=== PATIENT | female | born 1950 | race Caucasian/White ===

== ENCOUNTER 2023-05-24 22:40 | Emergency (ER) | payer BC ==
[~2023-05-24] VITALS: Ht 157.5 cm; Wt 54.4 kg
[2023-05-24 22:46] VITALS: TEMP 98.6
[2023-05-24 23:36] LABS: BASOPHILS # (AUTO) 0.1 K/uL (0.0-0.2); BASOPHILS % (AUTO) 0.9 % (0.0-2.0); EOSINOPHILS # (AUTO) 0.2 K/uL (0.0-0.7); EOSINOPHILS % (AUTO) 2.5 % (0.0-6.0); HEMATOCRIT 38 % (33-45); HEMOGLOBIN 12.9 g/dL (11.5-14.8); LYMPHOCYTES # (AUTO) 2.1 K/uL (0.8-4.8); LYMPHOCYTES % (AUTO) 31.9 % (20.0-44.0); MEAN CORPUSCULAR HEMOGLOBIN 32 PG (26.0-33.0); MEAN CORPUSCULAR HGB CONC 34 g/dl (31.0-36.0); MEAN CORPUSCULAR VOLUME 94 fL (82-100); MONOCYTES # (AUTO) 0.7 K/uL (0.1-1.30); MONOCYTES % (AUTO) 10.6 % (2.0-12.0); NEUTROPHILS # (AUTO) 3.6 K/uL (1.8-8.9); NEUTROPHILS % (AUTO) 54.1 % (43.0-81.0); PLATELET COUNT (AUTO) 209 K/uL (150-450); RED BLOOD CELL COUNT(AUTO) 4.05 MIL/uL (4.0-5.2); RED CELL DISTRIBUTION WIDTH 14.4 % (11.5-15.0); WHITE BLOOD COUNT (AUTO) 6.6 K/uL (4.3-11.0)
[2023-05-24 23:45] LABS: ADD URINE CULTURE YES; APPEARANCE,URINE CLEAR (CLEAR); BACTERIA,URINE Rare /HPF (None Seen); BILIRUBIN,URINE NEGATIVE (NEGATIVE); BLOOD, URINE NEGATIVE Ery/uL (NEGATIVE); COLOR,URINE YELLOW (YELLOW); KETONES,URINE TRACE mg/dL (NEGATIVE); LEUKOCYTE ESTERASE ,URINE 1+ (NEGATIVE); NITRITE, URINE NEGATIVE (NEGATIVE); PROTEIN,URINE NEGATIVE (NEGATIVE); RBC,URINE 0-2 /HPF (0-2); SQUAMOUS EPITHELIAL CELL,UR Rare /HPF (None Seen); UGLUCOSE NEGATIVE (NEGATIVE)
[2023-05-24 23:50] LABS: ALANINE AMINOTRANSFERASE 18 U/L (12-78); ALBUMIN 2.6 g/dL (3.4-5.0); ALKALINE PHOSPHATASE 96 U/L (46-116); ASPARTATE AMINOTRANSFERASE 19 U/L (15-37); BILIRUBIN,DIRECT 0.1 mg/dL (0.0-0.2); BILIRUBIN,TOTAL 0.3 mg/dL (0.2-1.0); CARBON DIOXIDE 25 mmol/L (21-32); CHLORIDE 110 mmol/L (98-107); CREATININE 0.7 mg/dL (0.6-1.3); GLUCOSE 115 mg/dL (74-106); LIPASE 38 U/L (16-77); POTASSIUM 3.8 mmol/L (3.5-5.1); SODIUM SERUM 141 mmol/L (136-145); TOTAL PROTEIN, SERUM 6.9 g/dL (6.4-8.2); UREA NITROGEN, BLOOD 25 mg/dL (7-18)
[2023-05-24 23:52] LABS: INR 1.18 (0.91-1.10); PARTIAL THROMBOPLASTIN TIME 29.1 SEC (24.3-34.3); PROTHROMBIN TIME 12.4 SECS (9.2-11.1)
[2023-05-25 00:38] VITALS: BP 121/77; O2SAT 98
[2023-05-25] MEDS: NITROFURANTOIN/MONOHYDRATE MACROCRYSTALS 100 MG CAPSULE PO ONE (00:58)
[2023-05-25] MEDS ORDERED: NITROFURANTOIN/MONOHYDRATE MACROCRYSTALS 100 MG CAPSULE ONE (00:58)
[2023-05-25] MEDS ORDERED: NITR100C6 PO (02:24)
== END 2023-05-25 03:00 ==
LOC: ER 22:49
DX: K40.90 Unilateral inguinal hernia, without obstruction or gangrene, not specified as recurrent (principal); N39.0 Urinary tract infection, site not specified; F03.90 Unspecified dementia, unspecified severity, without behavioral disturbance, psychotic disturbance, mood disturbance, and anxiety; I10 Essential (primary) hypertension; K21.9 Gastro-esophageal reflux disease without esophagitis; Z79.899 Other long term (current) drug therapy
CPT/HCPCS: 36415; 71045-TC; 80048-TC; 80076-TC; 81001; 83690-TC; 84484-TC; 85025-TC; 85730-TC; 87086-TC

== ENCOUNTER 2024-05-10 22:22 | Inpatient (IN) | payer MEDICARE, OTHER ==
[~2024-05-10] VITALS: Ht 154.9 cm; Wt 50.8 kg
[~2024-05-10 22:22] MED LIST: NITR100C6 PO
[2024-05-10] MEDS ORDERED: ACETAMINOPHEN 650 MG/SUPP.RECT RC ONE (22:43)
[2024-05-10 22:54] LABS: BASOPHILS # (AUTO) 0.1 K/uL (0.0-0.2); BASOPHILS % (AUTO) 1.2 % (0.0-2.0); EOSINOPHILS % (AUTO) 0.3 % (0.0-6.0); HEMATOCRIT 39 % (33-45); HEMOGLOBIN 13.1 g/dL (11.5-14.8); LYMPHOCYTES # (AUTO) 1.3 K/uL (0.8-4.8); LYMPHOCYTES % (AUTO) 16.5 % (20.0-44.0); MEAN CORPUSCULAR HEMOGLOBIN 32 PG (26.0-33.0); MEAN CORPUSCULAR HGB CONC 34 g/dl (31.0-36.0); MEAN CORPUSCULAR VOLUME 95 fL (82-100); MONOCYTES # (AUTO) 0.7 K/uL (0.1-1.30); MONOCYTES % (AUTO) 9.2 % (2.0-12.0); NEUTROPHILS # (AUTO) 5.6 K/uL (1.8-8.9); NEUTROPHILS % (AUTO) 72.8 % (43.0-81.0); PLATELET COUNT (AUTO) 178 K/uL (150-450); RED BLOOD CELL COUNT(AUTO) 4.05 MIL/uL (4.0-5.2); RED CELL DISTRIBUTION WIDTH 13.6 % (11.5-15.0); WHITE BLOOD COUNT (AUTO) 7.7 K/uL (4.3-11.0)
[2024-05-10] MEDS: ACETAMINOPHEN 650 MG/SUPP.RECT RC ONE (23:00)
[2024-05-10 23:05] LABS: CALCIUM, SERUM 8.7 mg/dL (8.5-10.1); CARBON DIOXIDE 26 mmol/L (21-32); CHLORIDE 104 mmol/L (98-107); CREATININE 0.8 mg/dL (0.6-1.3); GLUCOSE 144 mg/dL (74-106); POTASSIUM 3.7 mmol/L (3.5-5.1); SODIUM SERUM 140 mmol/L (136-145); UREA NITROGEN, BLOOD 21 mg/dL (7-18)
[2024-05-10 23:06] LABS: SERUM AMMONIA 13 umol/L (11-32)
[2024-05-10 23:07] LABS: INR 1.16 (0.91-1.10); PARTIAL THROMBOPLASTIN TIME 27.1 SEC (24.3-34.3); PROTHROMBIN TIME 12.2 SECS (9.2-11.1)
[2024-05-10] MEDS ORDERED: LORAZEPAM INJ 2 MG/ML VIAL ONE (23:14)
[2024-05-10 23:16] LABS: LACTIC ACID 2.9 mmol/L (0.4-2.0)
[2024-05-10 23:17] LABS: ALANINE AMINOTRANSFERASE 19 U/L (12-78); ALBUMIN 3.1 g/dL (3.4-5.0); ALCOHOL, BLOOD < 3 mg/dL (0-10); ALKALINE PHOSPHATASE 101 U/L (46-116); ASPARTATE AMINOTRANSFERASE 26 U/L (15-37); BILIRUBIN,DIRECT 0.2 mg/dL (0.0-0.2); BILIRUBIN,TOTAL 0.7 mg/dL (0.2-1.0); NT-PRO BNP 471 pg/mL (0-125); TOTAL PROTEIN, SERUM 7.2 g/dL (6.4-8.2)
[2024-05-10] MEDS: LORAZEPAM INJ 2 MG/ML VIAL IV ONE (23:17)
[2024-05-10] MEDS: IV NS 0.9% 500 ML BAG IV ONE (23:17)
[2024-05-10 23:36] LABS: APPEARANCE,URINE CLEAR (CLEAR); BILIRUBIN,URINE NEGATIVE (NEGATIVE); BLOOD, URINE NEGATIVE Ery/uL (NEGATIVE); COLOR,URINE YELLOW (YELLOW); KETONES,URINE TRACE mg/dL (NEGATIVE); LEUKOCYTE ESTERASE ,URINE NEGATIVE (NEGATIVE); NITRITE, URINE NEGATIVE (NEGATIVE); PROTEIN,URINE NEGATIVE (NEGATIVE); UGLUCOSE NEGATIVE (NEGATIVE)
[2024-05-10 23:43] LABS: AMPHETAMINE, URINE NEGATIVE (NEGATIVE); BARBITURATE, URINE NEGATIVE (NEGATIVE); BENZODIAZEPINE, URINE NEGATIVE (NEGATIVE); CANNABINOID, URINE NEGATIVE (NEGATIVE); COCCAINE, URINE NEGATIVE (NEGATIVE); OPIATE, URINE NEGATIVE (NEGATIVE); PHENCYCLIDINE SCREEN,URINE NEGATIVE (NEGATIVE)
[2024-05-10 23:59] LABS: ACETAMINOPHEN <10 ug/ml (10-30); SALICYLATE < 0.2 mg/dL (2.8-20.0)
[2024-05-11 00:13] LABS: RBC,URINE 0-2 /HPF (0-2)
[2024-05-11 00:14] LABS: ADD URINE CULTURE NO; BACTERIA,URINE Few /HPF (None Seen); MUCUS,URINE Many /LPF (None Seen); SQUAMOUS EPITHELIAL CELL,UR Moderate /HPF (None Seen)
[2024-05-11] MEDS: IV NS 0.9% 500 ML BAG IV ONE (00:30)
[2024-05-11] MEDS ORDERED: Z GUARD REMEDY 4 OZ OINT TP PRN (01:00)
[2024-05-11] MEDS ORDERED: MAGNESIUM HYDROXIDE 30 ML UDC PO PRN (01:00)
[2024-05-11 03:15] VITALS: BP 123/78; TEMP 97.3; O2SAT 97
[2024-05-11] MEDS ORDERED: LEVOFLOXACIN 500 MG /D5W 100ML 100 ML IV ONE (03:50)
[2024-05-11] MEDS: LEVOFLOXACIN 500 MG /D5W 100ML 500 MG in PREMIX 1 EA IV SCH (03:52)
[2024-05-11] MEDS: ENOXAPARIN SODIUM 40 MG/0.4 ML DISP.SYRIN SQ SCH (04:06)
[2024-05-11] MEDS: PANTOPRAZOLE 40 MG TABLET.DR PO SCH (07:54)
[2024-05-11 08:30] VITALS: BP 92/64
[2024-05-11] MEDS ORDERED: GUAI100S9 PO (09:34)
[2024-05-11] MEDS ORDERED: BUSP5TAB3 PO (09:34)
[2024-05-11] MEDS ORDERED: MAG-55 PO (09:34)
[2024-05-11] MEDS ORDERED: NA P133E RC (09:34)
[2024-05-11] MEDS ORDERED: PSYL1PAC8 PO (09:34)
[2024-05-11] MEDS ORDERED: DIVA500T2 PO (09:34)
[2024-05-11] MEDS ORDERED: CLON0.1T PO (09:34)
[2024-05-11] MEDS ORDERED: QUET100T PO (09:34)
[2024-05-11] MEDS ORDERED: MAGN400O6 PO (09:34)
[2024-05-11] MEDS ORDERED: QUET50TA PO (09:34)
[2024-05-11] MEDS ORDERED: BENZ0.5T43 PO (09:34)
[2024-05-11] MEDS ORDERED: DOCU240C26 PO (09:34)
[2024-05-11] MEDS ORDERED: ACET-73 PO (09:34)
[2024-05-11] MEDS ORDERED: BISO5TAB20 PO (09:34)
[2024-05-11] MEDS ORDERED: BISA10SU11 RC (09:34)
[2024-05-11] MEDS ORDERED: MULT-754 PO (09:34)
[2024-05-11] MEDS ORDERED: ACET325T53 PO ×2 (09:34)
[2024-05-11] MEDS ORDERED: TRAZ-182 PO (09:34)
[2024-05-11] MEDS ORDERED: DIPH25TA62 PO (09:34)
[2024-05-11 16:00] VITALS: BP 140/90; TEMP 98.2; O2SAT 99
[2024-05-11 16:34] LABS: SERUM AMMONIA < 10 umol/L (11-32)
[2024-05-11] MEDS: MAG HYDROX/AL HYDROX/SIMETH 30 ML UDC PO PRN (18:01)
[2024-05-11 20:00] VITALS: BP 149/74; TEMP 98.1; O2SAT 98
[2024-05-11] MEDS: ACETAMINOPHEN 325 MG TABLET PO PRN (20:31)
[2024-05-12] MEDS: ONDANSETRON HCL/PF 4 MG/2 ML VIAL IVP PRN (00:40)
[2024-05-12 05:55] LABS: BASOPHILS % (AUTO) 0.6 % (0.0-2.0); EOSINOPHILS % (AUTO) 0.6 % (0.0-6.0); HEMATOCRIT 36 % (33-45); HEMOGLOBIN 12.4 g/dL (11.5-14.8); LYMPHOCYTES # (AUTO) 1.4 K/uL (0.8-4.8); LYMPHOCYTES % (AUTO) 21.8 % (20.0-44.0); MEAN CORPUSCULAR HEMOGLOBIN 33 PG (26.0-33.0); MEAN CORPUSCULAR HGB CONC 34 g/dl (31.0-36.0); MEAN CORPUSCULAR VOLUME 95 fL (82-100); MONOCYTES # (AUTO) 0.6 K/uL (0.1-1.30); MONOCYTES % (AUTO) 9.4 % (2.0-12.0); NEUTROPHILS # (AUTO) 4.3 K/uL (1.8-8.9); NEUTROPHILS % (AUTO) 67.6 % (43.0-81.0); PLATELET COUNT (AUTO) 193 K/uL (150-450); RED CELL DISTRIBUTION WIDTH 13.7 % (11.5-15.0); WHITE BLOOD COUNT (AUTO) 6.3 K/uL (4.3-11.0)
[2024-05-12 07:00] VITALS: BP 129/81; TEMP 97.1; O2SAT 99
[2024-05-12 07:04] LABS: CALCIUM, SERUM 8.5 mg/dL (8.5-10.1); CREATININE 0.6 mg/dL (0.6-1.3); MAGNESIUM 2.2 mg/dL (1.8-2.4); POTASSIUM 4.1 mmol/L (3.5-5.1)
[2024-05-12 07:17] LABS: THYROID STIMULATING HORMONE 2.81 uIU/mL (0.358-3.74)
[2024-05-12 20:23] VITALS: BP 122/72; TEMP 97.9; O2SAT 95
[2024-05-13] MEDS: ZOLPIDEM TARTRATE 5 MG TABLET PO PRN (02:04)
[2024-05-13 05:38] VITALS: BP 124/77; TEMP 97.5; O2SAT 95
[2024-05-13 07:00] VITALS: BP 139/81; TEMP 98.4; O2SAT 96
[2024-05-13 16:00] VITALS: BP 147/93; TEMP 98.1; O2SAT 97
[2024-05-13 20:00] VITALS: BP 131/86; TEMP 97.8; O2SAT 96
[2024-05-14] MEDS: LEVOFLOXACIN (250MG) 250 MG TABLET PO SCH (01:02)
== END 2024-05-14 17:38 | DRG 195 ==
LOC: ER 22:35 → TELE 05-11 02:30 → MED 05-11 13:40
DX: J18.9 Pneumonia, unspecified organism (principal); I95.9 Hypotension, unspecified; R09.02 Hypoxemia; F03.90 Unspecified dementia, unspecified severity, without behavioral disturbance, psychotic disturbance, mood disturbance, and anxiety; I10 Essential (primary) hypertension; D64.9 Anemia, unspecified; F29 Unspecified psychosis not due to a substance or known physiological condition; K21.9 Gastro-esophageal reflux disease without esophagitis; R59.0 Localized enlarged lymph nodes
CPT/HCPCS: 36415; 70450-TC; 71045-TC; 80048-TC; 80076-TC; 81001; 82140-TC; 82607-TC; 83605-TC; 83735-TC; 83880; 83921; 84100-TC; 84443-TC; 84484-TC; 85025-TC; 85730-TC; 87040-TC; 97116-TC; 97530-TC; A4216; A4223; G0378; G0480; J1650; J1956; J2060; J2405; J7040; J7050

== ENCOUNTER 2025-02-17 01:14 | Inpatient (IN) | payer MEDICARE, OTHER ==
[~2025-02-17] VITALS: Ht 154.9 cm; Wt 56.3 kg
[~2025-02-17 01:14] MED LIST changes: +ACET-73 PO; +ACET325T53 PO; +BENZ0.5T43 PO; +BISA10SU11 RC; +BISO5TAB20 PO; +BUSP5TAB3 PO; +CLON0.1T PO; +DIPH25TA62 PO; +DIVA500T2 PO; +DOCU240C26 PO; +GUAI100S9 PO; +MAG-55 PO; +MAGN400O6 PO; +MULT-754 PO; +NA P133E RC; -NITR100C6 PO; +PSYL1PAC8 PO; +QUET100T PO; +QUET50TA PO; +TRAZ-182 PO
[2025-02-17] MEDS ORDERED: HALOPERIDOL LACTATE INJ 5 MG/ML VIAL ONE (02:14)
[2025-02-17] MEDS: HALOPERIDOL LACTATE INJ 5 MG/ML VIAL IM ONE (02:16)
[2025-02-17 02:24] LABS: PLATELET COUNT (AUTO) 133 K/uL (150-450); RED BLOOD CELL COUNT(AUTO) 3.93 MIL/uL (4.0-5.2); RED CELL DISTRIBUTION WIDTH 15.4 % (11.5-15.0); WHITE BLOOD COUNT (AUTO) 16.9 K/uL (4.3-11.0)
[2025-02-17 02:32] LABS: CALCIUM, SERUM 8.6 mg/dL (8.5-10.1); CREATININE 0.8 mg/dL (0.6-1.3); SODIUM SERUM 136 mmol/L (136-145); UREA NITROGEN, BLOOD 27 mg/dL (7-18)
[2025-02-17 02:37] LABS: APPEARANCE,URINE CLEAR (CLEAR); BLOOD, URINE 1+ Ery/uL (NEGATIVE); LEUKOCYTE ESTERASE ,URINE NEGATIVE (NEGATIVE); NITRITE, URINE POSITIVE (NEGATIVE); UGLUCOSE NEGATIVE (NEGATIVE)
[2025-02-17 02:41] LABS: INR 1.31 (0.91-1.10)
[2025-02-17 02:43] LABS: LACTIC ACID 2.8 mmol/L (0.4-2.0)
[2025-02-17 02:46] LABS: ADD URINE CULTURE YES; SQUAMOUS EPITHELIAL CELL,UR Few /HPF (None Seen)
[2025-02-17 02:46] LABS: ASPARTATE AMINOTRANSFERASE 53 U/L (15-37); TOTAL PROTEIN, SERUM 7.9 g/dL (6.4-8.2)
[2025-02-17] MEDS: IV NS 0.9% 1,000 ML BAG IV ONE (03:30)
[2025-02-17] MEDS: PIPERACILLIN /TAZOBACTAM 3.375 G in IV D5W 50 ML IV ONE (03:30)
[2025-02-17] MEDS ORDERED: DOSING PER PHARMACY-VANCOMYCIN IV XX PRN (04:00)
[2025-02-17] MEDS: VANCOMYCIN 1 GM in IV D5W 250 ML IV ONE (04:00)
[2025-02-17] MEDS ORDERED: MAG HYDROX/AL HYDROX/SIMETH 30 ML UDC PO PRN (04:00)
[2025-02-17] MEDS ORDERED: DOSING PER PHARMACY-ZOSYN IV 1 EA EA XX PRN (04:00)
[2025-02-17] MEDS ORDERED: ONDANSETRON HCL/PF 4 MG/2 ML VIAL IVP PRN (04:00)
[2025-02-17] MEDS ORDERED: ACETAMINOPHEN 325 MG TABLET PO PRN (04:00)
[2025-02-17] MEDS ORDERED: Z GUARD REMEDY 4 OZ OINT TP PRN (04:00)
[2025-02-17] MEDS ORDERED: HYDROCODONE/APAP 5/325MG TABLET PO PRN (04:00)
[2025-02-17] MEDS ORDERED: VANCOMYCIN 1 GM /D5W 250 ML PB IV ONE (04:03)
[2025-02-17] MEDS ORDERED: PIPERACI/TAZO 3.375GM/D5W 50ML PB IV ONE (04:03)
[2025-02-17] MEDS: IV NS 0.9% 1,000 ML IV ONE (05:41)
[2025-02-17] MEDS ORDERED: CRAN500T3 PO (07:57)
[2025-02-17] MEDS ORDERED: PANT40TA2 PO (07:57)
[2025-02-17] MEDS ORDERED: DOCU100C36 PO (07:57)
[2025-02-17 09:30] VITALS: BP 132/68; TEMP 97.8; O2SAT 97
[2025-02-17] MEDS: VANCOMYCIN 750 MG in IV D5W 250 ML IV ONE (09:40)
[2025-02-17] MEDS: PANTOPRAZOLE 40 MG TABLET.DR PO SCH (09:40)
[2025-02-17] MEDS: ZOSYN IVPB 3.375 G in IV D5W 50ml IV SCH (10:55)
[2025-02-17 12:00] VITALS: BP 118/63; TEMP 97.6; O2SAT 97
[2025-02-17 16:00] VITALS: BP 105/60; TEMP 97.7; O2SAT 97
[2025-02-17 20:00] VITALS: BP 114/95; TEMP 97.5; O2SAT 96
[2025-02-17] MEDS: ZOLPIDEM TARTRATE 5 MG TABLET PO PRN (23:39)
[2025-02-18] MEDS: OLANZAPINE 10 MG VIAL IM ONE
[2025-02-18 00:05] VITALS: BP 125/86; TEMP 98.6; O2SAT 96
[2025-02-18] MEDS: VANCOMYCIN HCL 1.25 GM in IV D5W 250 ML IV SCH (08:59)
[2025-02-18 11:44] LABS: PLATELET COUNT (AUTO) 114 K/uL (150-450); RED BLOOD CELL COUNT(AUTO) 3.53 MIL/uL (4.0-5.2); RED CELL DISTRIBUTION WIDTH 14.6 % (11.5-15.0); WHITE BLOOD COUNT (AUTO) 11.8 K/uL (4.3-11.0)
[2025-02-18 12:19] LABS: CALCIUM, SERUM 7.8 mg/dL (8.5-10.1); CREATININE 0.7 mg/dL (0.6-1.3); PHOSPHORUS 1.7 mg/dL (2.5-4.9); SODIUM SERUM 137 mmol/L (136-145); UREA NITROGEN, BLOOD 12 mg/dL (7-18)
[2025-02-18] MEDS: PIPERACILLIN /TAZOBACTAM 3.375 G in IV D5W 100 ML IV SCH (14:35)
[2025-02-18] MEDS: K PHOS NEUTRAL 250 MG TABLET PO ONE (18:00)
[2025-02-18] MEDS: MINERAL OIL/PETROLATUM,WHITE 120 GM JAR TP PRN (18:00)
[2025-02-18] MEDS: MAGNESIUM HYDROXIDE 30 ML UDC PO PRN (18:00)
[2025-02-18] MEDS: POTASSIUM CHLORIDE 20 MEQ TAB.PRT.SR PO SCH ×2 (19:06→22:00)
[2025-02-18] MEDS ORDERED: MAGNESIUM HYDROXIDE 30 ML UDC PO PRN (20:00)
[2025-02-18] MEDS ORDERED: GUAIFENESIN 300 MG/15 ML UDC PO PRN (20:00)
[2025-02-18] MEDS ORDERED: ACETAMINOPHEN ES 500 MG TABLET PO PRN (20:00)
[2025-02-18] MEDS ORDERED: HOME MED MISCELLANEOUS XX SCH (20:00)
[2025-02-18] MEDS ORDERED: ACETAMINOPHEN 325 MG TABLET PO PRN ×2 (20:00)
[2025-02-18] MEDS ORDERED: BENZTROPINE MESYLATE (1 MG) 1 MG TABLET PO PRN (20:00)
[2025-02-18] MEDS ORDERED: NA PHOS,M-B/NA PHOS,DI-BA 1 EA ENEMA RC PRN (20:00)
[2025-02-18] MEDS ORDERED: BISACODYL SUPP (10 MG) 10 MG/SUPP.RECT SUPP.RECT RC PRN (20:00)
[2025-02-18] MEDS: TRAZODONE 50 MG TABLET PO SCH (22:03)
[2025-02-18] MEDS: QUETIAPINE FUMARATE 100 MG TABLET PO SCH (22:03)
[2025-02-18] MEDS: DIVALPROEX SODIUM 500 MG TABLET.DR PO SCH (22:03)
[2025-02-19 07:00] VITALS: BP 149/71; TEMP 97.3; O2SAT 95
[2025-02-19] MEDS ORDERED: PANTOPRAZOLE 40 MG TABLET.DR PO SCH (07:30)
[2025-02-19 08:31] LABS: PLATELET COUNT (AUTO) 124 K/uL (150-450); RED BLOOD CELL COUNT(AUTO) 3.60 MIL/uL (4.0-5.2); RED CELL DISTRIBUTION WIDTH 14.5 % (11.5-15.0); WHITE BLOOD COUNT (AUTO) 6.8 K/uL (4.3-11.0)
[2025-02-19] MEDS: DOCUSATE SODIUM 100 MG CAPSULE PO SCH (08:36)
[2025-02-19] MEDS: CLONIDINE HCL 0.1 MG TABLET PO SCH (08:37)
[2025-02-19] MEDS: QUETIAPINE FUMARATE 25 MG TABLET PO SCH (08:37)
[2025-02-19] MEDS: BISOPROLOL FUMARATE 5 MG TABLET PO SCH (08:37)
[2025-02-19] MEDS: MULTIVITAMINS,THERAGRAN 1 UDTAB TABLET PO SCH (08:37)
[2025-02-19 08:52] LABS: CALCIUM, SERUM 7.9 mg/dL (8.5-10.1); CREATININE 0.6 mg/dL (0.6-1.3); SODIUM SERUM 144.0 mmol/L (136-145); UREA NITROGEN, BLOOD 9.0 mg/dL (7-18)
[2025-02-19] MEDS: POTASSIUM CHLORIDE 20 MEQ TAB.PRT.SR PO SCH (10:25)
[2025-02-19 11:30] VITALS: BP 92/55; TEMP 97.3; O2SAT 93
[2025-02-19] MEDS: K PHOS NEUTRAL 250 MG TABLET PO ONE (16:10)
[2025-02-19 20:00] VITALS: BP 101/47; TEMP 97.9; O2SAT 94
[2025-02-19] MEDS: CEFAZOLIN 2 GM in IV D5W 100 ML IV SCH (22:10)
[2025-02-20] VITALS: BP 126/77; TEMP 98.1; O2SAT 95
[2025-02-20 04:00] VITALS: BP 116/70; TEMP 97.5; O2SAT 95
[2025-02-20 07:54] LABS: PLATELET COUNT (AUTO) 159 K/uL (150-450); RED BLOOD CELL COUNT(AUTO) 3.55 MIL/uL (4.0-5.2); RED CELL DISTRIBUTION WIDTH 14.6 % (11.5-15.0); WHITE BLOOD COUNT (AUTO) 5.1 K/uL (4.3-11.0)
[2025-02-20 08:13] LABS: CALCIUM, SERUM 7.7 mg/dL (8.5-10.1); CREATININE 0.7 mg/dL (0.6-1.3); SODIUM SERUM 145.0 mmol/L (136-145); UREA NITROGEN, BLOOD 10.0 mg/dL (7-18)
[2025-02-20 22:00] VITALS: BP 114/62; TEMP 97.5; O2SAT 95
[2025-02-21 04:00] VITALS: BP 124/63; TEMP 97.3; O2SAT 97
[2025-02-21 07:00] VITALS: BP 110/94; TEMP 97.3; O2SAT 98
[2025-02-21] MEDS ORDERED: CEPH-570 PO (10:30)
[2025-02-21] MEDS: LORAZEPAM 1 MG TABLET PO ONE (13:52)
[2025-02-21 16:00] VITALS: BP 129/68; TEMP 97.3; O2SAT 94
[2025-02-22 03:09] LABS: FOLIC ACID 16.5 ng/mL (>3.0)
== END 2025-02-21 16:00 | DRG 602 ==
LOC: ER 01:16 → MS IN 05:33 → MED 07:32 → TELE 11:38 → MED 02-20 10:39
PROVIDERS: ADMIT Internal Medicine
DX: L03.116 Cellulitis of left lower limb (principal); G93.41 Metabolic encephalopathy; F01.518 Vascular dementia, unspecified severity, with other behavioral disturbance; R13.10 Dysphagia, unspecified; N39.0 Urinary tract infection, site not specified; L03.115 Cellulitis of right lower limb; B96.20 Unspecified Escherichia coli [E. coli] as the cause of diseases classified elsewhere; I11.0 Hypertensive heart disease with heart failure; I70.0 Atherosclerosis of aorta; F32.A Depression, unspecified; E01.0 Iodine-deficiency related diffuse (endemic) goiter; D64.9 Anemia, unspecified; F01.53 Vascular dementia, unspecified severity, with mood disturbance; I50.9 Heart failure, unspecified; Z86.73 Personal history of transient ischemic attack (TIA), and cerebral infarction without residual deficits; K21.9 Gastro-esophageal reflux disease without esophagitis; F41.9 Anxiety disorder, unspecified; E78.5 Hyperlipidemia, unspecified; Z79.899 Other long term (current) drug therapy
CPT/HCPCS: 36415; 71045-TC; 80048-TC; 80076-TC; 80202-TC; 81001; 82607-TC; 83605-TC; 83735-TC; 83921; 84100-TC; 84425; 84443-TC; 85025-TC; 85730-TC; 87040-TC; 87081-TC; 87086-TC; 87186-TC; 93970-TC; A4223; G0378; J0690; J1630; J2543; J3373; J3374; J3490; J7030; J7060; Q0163